=== PATIENT | male | born 1945 | race Caucasian/White ===

== ENCOUNTER 2019-09-25 16:37 | Emergency (ER) | payer OTHER ==
--- NOTE | 2019-09-25 16:56 | ER Document Report ---
ED Medical Screen (RME) - General Chief Complaint: Chest Pain > 30 Stated Complaint: POSSIBLE PE Time Seen by Provider: 09/25/19 16:50 Mode of Arrival: Ambulatory Information source: Patient Notes: 74-year-old male was sent to the ED by*medical for rule out PE. He states he has chest pain, shortness of breath, and left leg swelling. He has a history of esophageal cancer, pneumonia, nodules in his left lung, red and bite to his leg, back injuries with chronic pain and neuropathy, pneumonia, pancreatic and kidney cyst, abdominal aortic aneurysm measuring 2.6 cm, and Parkinson's disease. He states he was also told that he should get a CTA of the chest and a Doppler of his left leg. He is a former smoker occasionally drinks and does not use any drugs. Patient is alert oriented respirations regular nonlabored speaking in full sentences answering all questions appropriately. I have greeted and performed a rapid initial assessment of this patient. A comprehensive ED assessment and evaluation of the patient, analysis of test results and completion of medical decision making process will be conducted by an additional ED providers. - Related Data Allergies/Adverse Reactions: succinylcholine Allergy (Verified 09/25/19 16:42) tetracycline Allergy (Verified 09/25/19 16:42)
[2019-09-25 17:17] LABS: ABSOLUTE BASOPHILS # (AUTO) 0.1 10^3/uL (0.0-0.2); ABSOLUTE EOSINOPHILS # (AUTO) 0.2 10^3/uL (0.0-0.6); ABSOLUTE LYMPHOCYTES (AUTO) 1.2 10^3/uL (0.5-4.7); ABSOLUTE MONOCYTES (AUTO) 0.6 10^3/uL (0.1-1.4); ABSOLUTE NEUT (AUTO) 5.2 10^3/uL (1.7-8.2); BASOPHILS % (AUTO) 0.8 % (0-2); EOSINOPHILS % (AUTO) 3.2 % (0-6); HEMATOCRIT 47.8 % (37.9-51.0); HEMOGLOBIN 16.4 g/dL (13.5-17.0); LYMPHOCYTES % (AUTO) 16.5 % (13-45); MEAN CORPUSCULAR HEMOGLOBIN 31.3 pg (27.0-33.4); MEAN CORPUSCULAR HGB CONC 34.3 g/dL (32.0-36.0); MEAN CORPUSCULAR VOLUME 91 fl (80-97); MONOCYTES % (AUTO) 8.8 % (3-13); PLATELET COUNT 236 10^3/uL (150-450); RED BLOOD COUNT 5.24 10^6/uL (4.35-5.55); RED CELL DISTRIBUTION WIDTH 13.4 % (11.5-14.0); SEGMENTED NEUTROPHILS % (AUTO) 70.7 % (42-78); TOTAL CELLS COUNTED % (AUTO) 100 %; WHITE BLOOD COUNT 7.4 10^3/uL (4.0-10.5)
[2019-09-25 17:33] LABS: ALBUMIN 4.2 g/dL (3.5-5.0); ALKALINE PHOSPHATASE 142 U/L (38-126); ANION GAP 6 (5-19); ASPARTATE AMINO TRANSFERASE 29 U/L (17-59); BILIRUBIN,TOTAL 0.6 mg/dL (0.2-1.3); BLOOD UREA NITROGEN 18 mg/dL (7-20); CALCIUM 9.3 mg/dL (8.4-10.2); CARBON DIOXIDE 31 mmol/L (22-30); CHLORIDE 103 mmol/L (98-107); GLUCOSE 109 mg/dL (75-110); POTASSIUM 4.2 mmol/L (3.6-5.0); TOTAL PROTEIN 6.9 g/dL (6.3-8.2)
[2019-09-25] MEDS ORDERED: ENOXAPARIN SODIUM INJ 100 MG/1 ML DISP.SYRIN SUBCUT ONE (18:04)
--- NOTE | 2019-09-25 18:04 | RADIOLOGY REPORT (SQ) ---
EXAM DESCRIPTION: CHEST 2 VIEWS IMAGES COMPLETED DATE/TIME: 09/25/2019 5:47 pm REASON FOR STUDY: Chest pain shortness of breath history of cancer COMPARISON: None. EXAM PARAMETERS: NUMBER OF VIEWS: two views TECHNIQUE: Digital Frontal and Lateral radiographic views of the chest acquired. RADIATION DOSE: NA LIMITATIONS: none FINDINGS: LUNGS AND PLEURA: No opacities, masses or pneumothorax. No pleural effusion. MEDIASTINUM AND HILAR STRUCTURES: Rounded density in the retrocardiac area on the left medially. Not seen on the lateral view. Possible Paraesophageal hernia HEART AND VASCULAR STRUCTURES: Heart normal size. No evidence for failure. BONES: No acute findings. HARDWARE: None in the chest. OTHER: No other significant finding. IMPRESSION: Possible paraesophageal hernia. No acute mass or infiltrate. TECHNICAL DOCUMENTATION: JOB ID: [id number] 2010 [employer]- All Rights Reserved Reading location - IP/workstation name: [email or web address]
--- NOTE | 2019-09-25 18:08 | RADIOLOGY REPORT (SQ) ---
EXAM DESCRIPTION: VENOUS UNILATERAL LOWER IMAGES COMPLETED DATE/TIME: 09/25/2019 5:59 pm REASON FOR STUDY: Left leg swelling and pain COMPARISON: None. TECHNIQUE: Dynamic and static hood scale and color images acquired of the left leg venous system. Se lected spectral images acquired with additional compression and augmentation maneuvers. The contralat eral common femoral vein and saphenofemoral junction were also imaged. Images stored on PACS. LIMITATIONS: None. FINDINGS: COMMON FEMORAL: Nonocclusive thrombus that appears to be acute. FEMORAL: Normal compression and augmentation. No visualized echogenic material on hood scale. No defe cts on color images. POPLITEAL: Nonocclusive thrombus in the distal popliteal vein appears more chronic. CALF VESSELS: Normal compression, augmentation. No visualized echogenic material on hood scale. No de fects on color images. GSV and SSV: Normal compression, augmentation. No visualized echogenic material on hood scale. No def ects on color images. ANY DEEP VENOUS INSUFFICIENCY: Not evaluated. ANY EVIDENCE OF POPLITEAL CYST: No. OTHER: No other significant finding. CONTRALATERAL COMMON FEMORAL VEIN AND SAPHENOFEMORAL JUNCTION: Normal phasicity, compression and augmentation. No visualized echogenic material on hood scale. No de fects on color images. IMPRESSION: Chronic and acute DVT. TECHNICAL DOCUMENTATION: JOB ID: [id number] 2010 [employer]- All Rights Reserved Reading location - IP/workstation name: [email or web address]
--- NOTE | 2019-09-25 18:12 | ER Document Report ---
ED General - General Chief Complaint: Chest Pain > 30 Stated Complaint: POSSIBLE PE Time Seen by Provider: 09/25/19 16:50 Mode of Arrival: Ambulatory - HPI Notes: Chief complaint: Pain and swelling left lower extremity and exertional dyspnea HPI: 74-year-old was sent here from [place] [facility] with concern for possible DVT/PE. The patient denies known past history of thromboembolic disease. He has a history of a previous surgical repair of a torn meniscus in his left knee several years ago. He says he has had some swelling in the extremity since that time. Over the last 2 weeks the swelling has become worse and he is having intermittent aching pain in the left thigh and left calf area. Within the last 2 to 3 days he is also developed some mild exertional dyspnea unaccompanied by fever or sputum production. He quit smoking over 50 years ago. He also complains of some intermittent transient dull pain in the anterior chest bilaterally which is nonexertional. He denies hemoptysis. The patient has has a history of esophageal cancer treated over 5 years ago with esophagectomy and gastric pull-through procedure. Past treatment for for pneumonia, pancreatic and kidney cyst. He has a longstanding history of Park inson's disease. He is also known to have a stable abdominal aortic aneurysm measuring 2.6 cm. Patient says he was stung by fire ants over both lower extremities a few days ago and he is complaining of persistent itching and burning associated with this. - Related Data Allergies/Adverse Reactions: succinylcholine Allergy (Verified 09/25/19 16:42) tetracycline Allergy (Verified 09/25/19 16:42) Past Medical History - General Information source: Patient - Social History Smoking Status: Former Smoker Frequency of alcohol use: Social Drug Abuse: None Lives with: Family Family History: Reviewed & Not Pertinent Patient has homicidal ideation: No - Past Medical History Cardiac Medical History: Reports: None Pulmonary Medical History: Reports: Other - Pulmonary nodules. Past treatment for pneumonia. Neurological Medical History: Reports: Hx Parkinson's Disease Endocrine Medical History: Reports: None Malignancy Medical History: Reports Other - History of esophageal CA GI Medical History: Reports: Other - History of esophageal CA Psychiatric Medical History: Reports: None Past Surgical History: Reports: Other - Esophageal surgery for cancer Review of Systems - Review of Systems Notes: Constitutional: Negative for fever. HENT: Negative for sore throat. Eyes: Negative for visual changes. Cardiovascular: As per HPI. Respiratory: As per HPI. Gastrointestinal: Negative for abdominal pain, vomiting or diarrhea. Genitourinary: Negative for dysuria. Musculoskeletal: As per HPI. Skin: Negative for rash. Neurological: Tremor related to parkinsonism. 10 point ROS negative except as marked above and in HPI. Physical Exam - Vital signs Vitals: Temp 98.7 F 09/25/19 16:42 - Notes Notes: GENERAL: Well-developed well-nourished appearing in no acute distress. SKIN: Multiple insect bites over both lower extremities. Good turgor no rashes. HEAD: Normocephalic atraumatic. EYES: PERRLA. EOMI. Conjunctivae and sclerae clear. EARS: CANALS AND TMS CLEAR. NOSE: CLEAR. MOUTH: Moist mucosa. Good dentition. No stridor or edema. No drooling. NECK: Supple. No masses or thyromegaly. No adenopathy. Carotids 2+ without bruits. No JVD. BACK: Symmetrical without tenderness. CHEST: Respirations unlabored. Breath sounds clear and symmetrical. HEART: Regular rhythm. No murmur gallop or rub. ABDOMEN: Soft nontender without masses, organomegaly or rebound. Bowel sounds normally active. No bruits. GENITALIA: Deferred. EXTREMITIES: 1+ brawny edema of left lower extremity with mild tenderness in the left calf and left posterior thigh area. No redness or palpable cords appreciated. No calf tenderness. Cap refill less than 1.5 seconds. Dorsalis pedis and posterior tibial pulses 3+ and symmetrical. NEUROLOGICAL: GCS 15. Alert and oriented x3. Patient is ambulatory with a cane. Fluent speech. Cranial nerves II through XII intact. Sensorimotor and cerebellar normal. Normal tone. PSYCHIATRIC: Appropriate affect. Course - Re-evaluation Re-evalutation: 09/25/19 18:16 Doppler ultrasound left lower extremity demonstrates deep venous thrombosis left femoral vein. Patient is going to receive a dose of subcu Lovenox. We will order a CTA of the chest at this time. 09/25/19 20:03 CTA chest is negative. Patient is very comfortable at this time with no new problems identified. His troponin is normal. Vital signs are stable. He is received 1 mg/kg of Lovenox subcu earlier. I think this man is stable for outpatient management of his DVT with Xarelto. Findings, clinical impression and plan of treatment have been discussed with patient/family. Understanding of current findings and recommendations has been acknowledged by them and there is agreement regarding disposition and follow-up. - Vital Signs Vital signs: Temp Pulse Resp BP Pulse Ox 98.7 F 105 H 10 L 140/91 H 99 09/25/19 16:53 09/25/19 16:53 09/25/19 19:00 09/25/19 16:53 09/25/19 19:00 - Laboratory Result Diagrams: 09/25/19 17:05 09/25/19 17:05 Laboratory results interpreted by me: 09/25/19 17:05 Carbon Dioxide 31 H Est GFR (MDRD) Non-Af 58 L Alkaline Phosphatase 142 H - EKG Interpretation by Me Additional EKG results interpreted by me: 09/25/19 18:18 Twelve-lead EKG from 1701 hrs. reviewed contemporaneously by me demonstrating a normal sinus rhythm with a rate of 97. QRS axis is positive for degrees. Intervals are normal. There are no acute ST/T wave changes. There is no old tracing available for comparison. Discharge - Discharge Clinical Impression: Deep vein thrombosis (DVT) of left lower extremity Qualifiers: Affected thrombotic vein of extremity: unspecified vein of extremity Chronicity: acute Qualified Code(s): I82.402 - Acute embolism and thrombosis of unspecified deep veins of left lower extremity Condition: Stable Disposition: HOME, SELF-CARE Additional Instructions: DVT Outpatient Treatment You have deep venous thrombosis (DVT) in your leg. DVT or phlebitis is blood clots within the large deep veins. This causes redness, warmth, and tenderness of the involved area. This problem is more likely to affect people who smoke, take estrogen, have had recent surgery, have been immobile, have had previous DVT, or who have serious underlying health conditions. Keep your legs elevated. A heating pad, 20 minutes every two hours, can help with leg pain. For now, keep walking to a minimum. Don't do any physical work, lifting, or exercise. If the doctor has recommended medication for you, it's important that you take it. You will be started on a blood-thinning medication. Follow-up is important. Your medication needs to be monitored. Call or return at once if you cough blood or vomit blood, pass black or bloody stool, or have any other unusual bleeding. DVT can cause serious complications. The clots can damage the valves in the veins, leading to chronic pain and swelling. If a clot breaks loose and floats upstream, it can stick in the lungs. A clot in the lungs, called pulmonary embolism, can be life-threatening. Call the doctor or return if you develop increasing leg pain and swelling, leg discoloration, fever, chest pain, or shortness of breath. Take prescribed medication as directed. Return here as needed for new or worsening symptoms: Pain that is worsening or unimproved Uncontrolled vomiting High fever or shaking chills Overall worsening here Follow-up with your primary care provider next 3 to 5 days. Prescriptions: Rivaroxaban [Xarelto 15 mg Tablet] 15 mg PO BID 21 Days #42 tablet Referrals: [facility] [Provider Group] - Follow up as needed
[2019-09-25 18:16] LABS: PROTHROMBIN TIME 12.1 SEC (11.4-15.4)
[2019-09-25 18:17] LABS: PARTIAL THROMBOPLASTIN TIME 27.5 SEC (23.5-35.8)
--- NOTE | 2019-09-25 19:09 | RADIOLOGY REPORT (SQ) ---
EXAM DESCRIPTION: CTA CHEST IMAGES COMPLETED DATE/TIME: 09/25/2019 6:53 pm REASON FOR STUDY: CP, Pos. DVT LLE by doppler COMPARISON: None. TECHNIQUE: CT scan of the chest performed using helical scanning technique with dynamic intravenous contrast injection. Images reviewed with lung, soft tissue and bone windows. Reconstructed coronal and sagittal MPR images reviewed. Additional 3 dimensional post-processing performed to develop Maximal Intensity Projection images ([place] P). All images stored on PACS. All CT scanners at this facility use dose modulation, iterative reconstruction, and/or weight based d osing when appropriate to reduce radiation dose to as low as reasonably achievable (ALARA). [facility]: Dose Right [facility]: CareDose [facility]: Dose Right [facility]: Teradose 4D [facility]: [email or web address] CONTRAST TYPE AND DOSE: 69 cc Omnipaque 350- low osmolar. Contrast bolus adequate for pulmonary arteries and aorta. RENAL FUNCTION: BUN 18 creatinine 1.2 RADIATION DOSE: CT Rad equipment meets quality standard of care and radiation dose reduction techniq ues were employed. CTDIvol: 19.8 - 36.4 mGy. DLP: 1416 mGy-cm. . LIMITATIONS: None. FINDINGS: LUNGS AND PLEURA: No infiltrate, effusion, or mass. Gastric pull-through procedure. AORTA AND GREAT VESSELS: No aneurysm. No dissection. HEART: No pericardial effusion. No significant coronary artery calcifications. PULMONARY ARTERIES: No emboli visualized in the main pulmonary arteries or the segmental branches. HILAR AND MEDIASTINAL STRUCTURES: Gastric pull-through procedure. No hilar or mediastinal adenopathy or masses. HARDWARE: None in the chest. UPPER ABDOMEN: No significant findings. Limited exam. THYROID AND OTHER SOFT TISSUES: No masses. No adenopathy. BONES: No acute or significant finding. 3D MIPS: Confirm above findings. OTHER: No other significant finding. IMPRESSION: 1. There is no pulmonary embolus. There is no aortic aneurysm or dissection. 2. Prior gastric pull-through procedure. COMMENT: Quality ID # [id number]: Final reports with documentation of one or more dose reduction techniques (e.g., Automated exposure control, adjustment of the mA and/or kV according to patient size, use of iterative reconstruction technique) TECHNICAL DOCUMENTATION: JOB ID: [id number] 2010 [employer]- All Rights Reserved Reading location - IP/workstation name: [email or web address]
[2019-09-25 20:03] VITALS: BP 142/91
--- NOTE | 2019-09-25 20:04 | EKG REPORT ---
SEVERITY:- NORMAL ECG - SINUS RHYTHM : Confirmed by: Peter Schneider MD 25-Sep-2019 20:04:13
== END 2019-09-25 20:31 | disposition home or self-care (01) ==
LOC: ER 16:37
DX: I82.402 Acute embolism and thrombosis of unspecified deep veins of left lower extremity (principal); M79.652 Pain in left thigh; M79.602 Pain in left arm; R07.9 Chest pain, unspecified; M79.89 Other specified soft tissue disorders; R06.00 Dyspnea, unspecified; Z87.891 Personal history of nicotine dependence; Z88.8 Allergy status to other drugs, medicaments and biological substances
CPT/HCPCS: 93005; 99285; 36415; 85025; 85610; 85730; 80053; 84484; 83880; 93971; 71046; 71275; 93010; J1650

== ENCOUNTER 2020-05-06 07:23 | Day surgery (SDC) | payer OTHER ==
[~2020-05-06 07:23] MED LIST: PROPOFOL INJ 200 MG/20 ML VIAL IV ONE
[2020-05-06 09:17] VITALS: BP 123/74
--- NOTE | 2020-05-06 12:27 | Operative Report ---
Operative Report DATE OF SURGERY: 05/06/20 Operative Report: The risk, benefits and alternatives of the procedure including the risk of bleeding, perforation requiring surgery have been explained to the patient in detail and informed consent has been obtained. The patient is placed in left, lateral decubital position. Timeout was called. Propofol medication is administered. Rectal examination is done which did not reveal any masses, tears or fissures. An Olympus videoscope was introduced into the patient's rectum. The scope was then carefully advanced all the way to the cecum. The cecum was identified by the usual anatomical landmarks including the ileocecal valve as well as the appendiceal office. Photodocumentation is obtained. The scope was then sequentially pulled back via the various segments of the colon including the ascending colon, hepatic flexure, transverse colon, splenic flexure, descen ding colon and finally into the rectosigmoid portions of the colon. Retroflexion maneuver is performed. The risks benefits and alternatives of the procedure explained to the patient in detail and informed consent is obtained.A GIF Olympus video scope was inserted into the patient's mouth and hypopharynx ,the esophagus is identified intubated and insufflated ,the scope was then advanced through the esophagus stomach and duodenum, retroflexion maneuver is done, the esophagus stomach and first and second portions of the duodenum examined PREOPERATIVE DIAGNOSIS: Gastroesophageal reflux disease status post esophagectomy with gastric pull-up. Personal history of polyps POSTOPERATIVE DIAGNOSIS: As noted per previous surgery patient does have es ophagectomy with gastric pull-up there appears to be about 4 cm of [place] esophagus. Gastritis status post biopsy. Diverticulosis without any evidence of diverticulitis. Internal hemorrhoids. Right side colon inflammation status post biopsy OPERATION: Colonoscopy with biopsy. EGD with biopsy SURGEON: MONICA LUCAS ANESTHESIA: LMAC TISSUE REMOVED OR ALTERED: As noted above. COMPLICATIONS: None. ESTIMATED BLOOD LOSS: None. INTRAOPERATIVE FINDINGS: As noted above. PROCEDURE: Patient tolerated the procedure well. No immediate postprocedure complications are noted. Patient is discharged in good condition. Discharge date 05/06/2020. Discharge diet: Regular. Discharge activity: Regular. 2 to 3-week follow-up to discuss findings. Patient is instructed to call the office or proceed to the emergency room should there be any further problems questions. Wait on the pathology. Consider 5 to 10-year surveillance colonoscopy.
--- OUTSIDE RECORDS SUMMARY | 2020-05-08 09:25 | XMS REPORT ---
:1945 [facility] Address [address] [address] Care Team Providers Name Role Phone Carlos Callaway MD Attending Clinician Unavailable Richard Aiken MD Attending Clinician Unavailable Ronna Ceron Attending Clinician Unavailable Allergies, Adverse Reactions, Alerts Allergy Name Allergy Status Severity Reaction(s) Onset Inactive Treat ing Comments Type Date Date Clinician SUCCINYLCHOL Drug Active Unknown INE CHLORIDE allergy - 00:00: 00 TETRACYCLINE Drug Active Unknown allergy - 00:00: 00 Tetracycline Tetracyclin Active s es Succinylchol Succinylcho Active ine Chloride line SOLN Chloride SOLN Medications Ordered Filled Start Stop Current Ordering Indication Dosage Frequency Signature Comments Components Medication Medication Date Date Medication? Clinician (SIG) Name Name Clotrimazol Yes Carlos Q0.5D Clotrimazo e-Betametha - [place] JAIME le-Betamet sone 1-0.05 00:00: hasone % External 00 1-0.05 % Cream External Cream APPLY AND RUB IN A THIN FILM TO AFFECTED AREAS TWICE DAILY.(AM AND PM). Quantity: 1 Refills: 2 Carlos Callaway MD Start : 1Active 45 GM Tube Sulfamethox Yes Richard Q0.5D Sulfametho azole-Trime 1-20 Attila JAIME xazole-Tr i thoprim 00:00: methoprim 800-160 MG 00 800-160 MG Oral Tablet Oral Tablet TAKE 1 TABLET TWICE DAILY UNTIL FINISHED. Quantity: 60 Refills: 0 Richard Aiken MD Start : 1Active Gabapentin Yes 0 Gabapentin 300 MG Oral 300 MG Capsule Oral Capsule Refills: 0 ,,, Active Zolpidem Yes 0 Zolpidem Tartrate 10 Tartrate MG Oral 10 MG Oral Tablet Tablet Refills: 0 ,,, Active Tamsulosin Yes 0 Tamsulosin HCl 0.4 MG HCl 0.4 MG CP24 CP24 Refills: 0 ,,, Active Atorvastati Yes 0 Atorvastat n Calcium in Calcium 10 MG Oral 10 MG Oral Tablet Tablet Refills: 0 ,,, Active amLODIPine Yes 0 amLODIPine Besylate 10 Besylate MG Oral 10 MG Oral Tablet Tablet Refills: 0 ,,, Active Docusate Yes 0 Docusate Sodium 100 Sodium 100 MG Oral MG Oral Capsule Capsule Refills: 0 ,,, Active Cetirizine Yes 0 Cetirizine HCl - 10 MG HCl - 10 Oral Tablet MG Oral Tablet Refills: 0 ,,, Active Medications No Medication not s not documented documented Sudafed Yes 0 Sudafed Congestion Congestion 30 MG Oral 30 MG Oral Tablet Tablet Refills: 0 ,,, Active Omeprazole Yes 0 Omeprazole 20 MG Oral 20 MG Oral Capsule Capsule Delayed Delayed Release Release Refills: 0 ,,, Active HYDROcodone Yes 0 HYDROcodon -Acetaminop e-Acetamin hen 10-325 ophen MG Oral 10-325 MG Tablet Oral Tablet Refills: 0 ,,, Active Propranolol Yes 0 Propranolo HCl - 40 MG l HCl - 40 Oral Tablet MG Oral Tablet Refills: 0 ,,, Active Ibuprofen Yes 0 Ibuprofen 800 MG Oral 800 MG Tablet Oral Tablet Refills: 0 ,,, Active Fluticasone Yes 0 Fluticason Propionate e 50 MCG/ACT Propionate Nasal 50 MCG/ACT Suspension Nasal Suspension Refills: 0 ,,, Active Albuterol Yes 0 Albuterol Sulfate HFA Sulfate 108 (90 HFA 108 Base) (90 Base) MCG/ACT MCG/ACT Inhalation Inhalation Aerosol Aerosol Solution Solution Refills: 0 ,,, Active Medications No Medication not s not documented documented Problems Condition Condition Condition Status Onset Resolution Last Treatin g Comments Name Details Category Date Date Treatment Clinician Date Frequency Frequency Problem Active of of urination urination Chronic Chronic Problem Active prostatitis prostatitis Weak Weak Problem Active urinary urinary stream stream Urinary Urinary Problem Active urgency urgency Symptoms Symptoms Problem Active involving involving urinary urinary system system Procedures Procedure Date / Time Performed Performing Clinician Verenice e Urinalysis 2020-05-07 00:00:00 Urinalysis 2020-04-30 00:00:00 OFFICE/OUTPATIENT VISIT NEW 2020-04-17 10:30:00 History of Umbilical hernia repair History of Cholecystectomy History of Shoulder surgery History of Tonsillectomy with adenoidectomy History of Esophageal diverticulectomy History of Prostate resection transurethral Results Test Description Test Time Test Comments Text Results Atomic Results Result Comments Urinalysis 2020-05-07 15:03:00 Test Item Value Reference Range Comments Urine Color (test code = Urine Yellow Yellow Color) Urine Clarity (test code = Clear Clear Urine Clarity) Urine Glucose (test code = Negative Negative Urine Glucose) Urine Ketones (test code = Trace Negative Urine Ketones) Urine Bilirubin (test code = Small Negative Prema ble to perform Ictotest due Urine Bilirubin) to reagent unav ailable from toy consultant. Urine Specific [place] (test 1.032 1.010-1.030 Ref ractometer code = Urine Specific [place]) Urine Blood (test code = Urine Negative Negative Blood) Urine pH (test code = Urine pH) 6.0 5.0-8.0 Urine Protein (test code = Trace Negative Urine Protein) Urine Urobilinogen (test code = 0.2 Eu/dl 0.2 Urine Urobilinogen) Urine Nitrites (test code = Negative Negative Urine Nitrites) Urine Leukocytes (test code = Negative Negative Urine Leukocytes) microscopic: occ [id number] RNA Resp Ql [id number] 00:00:00 Test Item Value Reference Range Comments SARS-CoV-2 RNA Resp Ql Not detected [facility] Case JEFF+probe (test code = ID: [id number]) SARS-CoV-2, JEFF\S\2020-05-03 09:37:00 Test Item Value Reference Range Comments SARS-CoV-2, JEFF (test code = 12908-5) Not Detected Not Detect ed [id number] 08:11:00 Test Item Value Reference Range Comments Urine Color (test code = Urine Color) YELLOW Yellow Urine Clarity (test code = Urine Clarity) CLEAR Clear Urine Glucose (test code = Urine Glucose) NEGATIVE Negati ve Urine Ketones (test code = Urine Ketones) TRACE Negati ve Urine Bilirubin (test code = Urine Bilirubin) NEGATIVE Ne gative Urine Specific [place] (test code = Urine Specific 1.025 1.010-1.030 [place]) Urine Blood (test code = Urine Blood) NEGATIVE Negative Urine pH (test code = Urine pH) 6.5 5.0-8.0 Urine Protein (test code = Urine Protein) TRACE Negati ve 0-2 WBC Urine Urobilinogen (test code = Urine 0.2 Eu/dl 0.2 Urobilinogen) Urine Nitrites (test code = Urine Nitrites) NEGATIVE Nega tive Urine Leukocytes (test code = Urine Leukocytes) NEGATIVE Negative Assessments Condition Name Status Diagnosis Date Treating Clinici an Frequency of urination Active Chronic prostatitis Active Urinary urgency Active Weak urinary stream Active Change in bowel habit Active Personal history of colonic polyps Active Personal history of other diseases of the Active digestive system Melena Active Encounters Start End Encounter Admission Attending Care Care Encounter Date/Time Date/Time Type Type Clinicians Facility Department ID 2020-05-07 2020-05-07 Appointment HEATHER Callaway [facility] [id number] 14:25:00 14:25:00 ; Carlos Callaway MD 2020-05-01 2020-05-01 Appointment HEATHER Aiken [facility] [id number] 10:45:00 10:45:00 ; Richard Aiken MD 2020-04-17 2020-04-17 Outpatient [facility] 3 [id number] 10:30:00 10:30:00 Ronna Children [id number] [facility], Family History Family Member Diagnosis Comments Start Date Stop Date Mother Family history of malignant neoplasm of cervix Father Family history of heart disease Brother Family history of heart disease Social History Smoking Status Start Date Stop Date Ex-smoker (finding) Vital Signs Vital Name Observation Time Observation Value Comments Systolic blood pressure 2020-05-07 14:28:00 145 mm[Hg] Diastolic blood pressure 2020-05-07 14:28:00 87 mm[Hg] Systolic blood pressure 2020-05-01 11:06:00 134 mm[Hg] Diastolic blood pressure 2020-05-01 11:06:00 85 mm[Hg] Body height 2020-05-01 11:01:00 71 [in_us] Weight 2020-05-01 11:01:00 215 [lb_av] Body mass index (BMI) [Ratio] 2020-05-01 11:01:00 29.99 kg/m2 Hospital Discharge Instructions NameDatesDetailsInstructions not documentedNameDatesDetailsInstructions not documented
== END 2020-05-06 09:55 | disposition home or self-care (01) ==
LOC: OROUT 07:23
PROVIDERS: ATTEND Internal Medicine Gastroenterology
DX: K57.30 Diverticulosis of large intestine without perforation or abscess without bleeding (principal); K31.9 Disease of stomach and duodenum, unspecified; K29.70 Gastritis, unspecified, without bleeding; K29.80 Duodenitis without bleeding; K52.9 Noninfective gastroenteritis and colitis, unspecified; I10 Essential (primary) hypertension; K21.9 Gastro-esophageal reflux disease without esophagitis; K64.8 Other hemorrhoids; I71.4 Abdominal aortic aneurysm, without rupture; J45.909 Unspecified asthma, uncomplicated; Z86.010 Personal history of colon polyps; Z90.49 Acquired absence of other specified parts of digestive tract; Z79.899 Other long term (current) drug therapy; Z87.19 Personal history of other diseases of the digestive system; Z85.01 Personal history of malignant neoplasm of esophagus; Z98.890 Other specified postprocedural states; M19.90 Unspecified osteoarthritis, unspecified site
CPT/HCPCS: 43239; 45380; 88342 ×2; 88305 ×2; 00813; J2704; 813